=== PATIENT | female | born 1955 | race Caucasian/White ===

== ENCOUNTER 2018-08-03 10:11 | Emergency (ER) | payer OTHER ==
[~2018-08-03] VITALS: Ht 167.6 cm; Wt 72.6 kg
[~2018-08-03 10:11] MED LIST: AMOX1TAB12 PO; BACTROBAN NASAL1 GM NS; DYMISTA NASAL S23 GM; ZYRTEC10 M3
== END 2018-08-03 15:48 | disposition home or self-care (01) ==
LOC: ER 10:11
DX: B34.9 Viral infection, unspecified (principal)

== ENCOUNTER 2020-03-19 13:42 | Outpatient (CLI) | payer OTHER | END 2020-03-19 14:04 | disposition home or self-care (01) | LOC: MAMO-SONO 13:42 → EDBD 13:42 → MAMO-SONO 14:04 | PROVIDERS: ATTEND Obstetrics & Gynecology | DX: Z12.31 Encounter for screening mammogram for malignant neoplasm of breast (principal); N60.11 Diffuse cystic mastopathy of right breast; N60.12 Diffuse cystic mastopathy of left breast ==

== ENCOUNTER 2020-03-19 15:05 | Outpatient (CLI) | payer OTHER | END 2020-03-19 15:26 | disposition home or self-care (01) | LOC: NUCLEAR 15:05 | PROVIDERS: ATTEND Obstetrics & Gynecology | DX: M81.0 Age-related osteoporosis without current pathological fracture (principal) ==

== ENCOUNTER 2021-08-04 08:28 | Emergency (ER) | payer OTHER ==
[~2021-08-04] VITALS: Ht 160 cm; Wt 68.0 kg
[2021-08-04] MEDS ORDERED: PROAIR RESPICL90 MCG (08:37)
[2021-08-04] MEDS ORDERED: XOPENEX0.63 MG/3 (08:37)
[2021-08-04] MEDS ORDERED: PEPCID AC20 MG (08:38)
[2021-08-04] MEDS ORDERED: PRILOSEC OTC20 MG (08:38)
== END 2021-08-04 10:43 | disposition home or self-care (01) ==
LOC: ER 08:28
DX: U07.1 COVID-19 (principal)

== ENCOUNTER 2021-08-31 18:55 | Emergency (ER) | payer OTHER ==
[~2021-08-31] VITALS: Ht 167.6 cm; Wt 68.0 kg
[~2021-08-31 18:55] MED LIST changes: +PEPCID AC20 MG; +PRILOSEC OTC20 MG; +PROAIR RESPICL90 MCG; +XOPENEX0.63 MG/3
[2021-08-31] MEDS ORDERED: METHYLPREDNISOLO8 MG (19:07)
[2021-08-31] MEDS ORDERED: MUCINEX DM ER1 EACH (19:07)
[2021-08-31] MEDS ORDERED: FLONASE16 GM (19:08)
== END 2021-08-31 22:32 | disposition home or self-care (01) ==
LOC: ER 18:55
DX: J45.909 Unspecified asthma, uncomplicated (principal)

== ENCOUNTER 2022-01-28 18:45 | Emergency (ER) | payer OTHER ==
[~2022-01-28] VITALS: Ht 167.6 cm; Wt 65.3 kg
[~2022-01-28 18:45] MED LIST changes: +FLONASE16 GM; +METHYLPREDNISOLO8 MG; +MUCINEX DM ER1 EACH
== END 2022-01-28 22:39 | disposition home or self-care (01) ==
LOC: ER 18:45
DX: R07.9 Chest pain, unspecified (principal); J45.909 Unspecified asthma, uncomplicated